=== PATIENT | male | born 1955 | race Caucasian/White ===

== ENCOUNTER 2021-12-18 18:24 | Emergency (ER) | payer MEDICARE, SELFPAY ==
--- NOTE | ~2021-12-18 | CT_ITS ---
EXAMINATION: CT facial & cervical spine wo DATE: 12/18/2021 19:45 INDICATION: facial trauma, Laceration under Left eye TECHNIQUE: Computed tomography (CT) of the maxillofacial region and cervical spine was performed with out intravenous contrast. Automated exposure control and iterative reconstruction technique were empl oyed. The dose-length product was 340.19 mGy-cm. COMPARISON: None FINDINGS: CERVICAL: Vertebral Body Alignment: Intact. Craniocervical and atlantoaxial alignment: Mild degenerative change. Alignment intact. Osseous structures/fracture: No evidence of a lytic or blastic process in the visualized spine. No e vidence of acute fracture. Cervical soft tissues: The paraspinal soft tissues planes are maintained. Degenerative changes: Degenerative disc and facet changes changes, without severe neural foraminal or central canal narrowing. FACE: Mild motion artifact. Soft Tissues: Left frontal and periorbital soft tissue swelling. Facial bones: Irregularity and mild displacement of the nasal bones. No lytic or blastic process. Eyes: The globes are intact. The soft tissue planes of the orbits are maintained. Paranasal Sinuses: Retention cyst or polyp in the left maxillary sinus, with a small amount of aerat ed secretion. Foreign Bodies: No radiopaque foreign bodies. Other Findings: None. IMPRESSION: Motion limited examination of the face. Mild irregularity/displacement of the nasal bones, may reflec t acute or chronic injury, correlate with pain/tenderness. Otherwise no acute facial bone fracture. N o acute fracture or traumatic malalignment in the cervical spine. Reviewed, dictated and finalized at location K. IMPRESSION: Motion limited examination of the face. Mild irregularity/displacement of the n sampson bones, may reflect acute or chronic injury, correlate with pain/tenderness . Otherwise no acute facial bone fracture. No acute fracture or traumatic malal ignment in the cervical spine.
--- NOTE | ~2021-12-18 | XR_ITS ---
EXAMINATION: XR chest 1V portable Exam Date/Time: 12/18/2021 19:35 CDT HISTORY: fall Comparison: None available. RESULT: Lines, tubes, and devices: None. Lungs and pleura: Clear. Cardiomediastinal silhouette: Unremarkable. Other: No acute osseous or upper abdominal finding. IMPRESSION: No acute cardiopulmonary process. Reviewed, dictated and finalized at location K.
--- NOTE | ~2021-12-18 | XR_ITS ---
EXAM: XR pelvis 1-2V DATE: 12/18/2021 19:46 HISTORY: fall . COMPARISON: None available. FINDINGS: Normal mineralization. No fracture or dislocation. No lytic or blastic lesion. Degenerativ e change in the lower lumbar spine and bilateral hips. No erosion or periosteal change. Multiple pelv ic phleboliths. Vascular calcifications. IMPRESSION: No acute osseous finding in the pelvis. Reviewed, dictated and finalized at location K.
--- NOTE | ~2021-12-18 | CT_ITS ---
EXAMINATION: CT brain wo con DATE: 12/18/2021 19:43 INDICATION: head injury . TECHNIQUE: Computed tomography (CT) of the head was performed without intravenous contrast. The mA wa s adjusted according to patient size. Iterative reconstruction technique was employed. The dose-lengt h product was 681.00 mGy-cm. COMPARISON: None FINDINGS: No acute intracranial hemorrhage or extra-axial fluid collection. No hydrocephalus, mass, or herniation. No acute ischemic infarct. Unremarkable dural venous sinus attenuation. No acute osseous abnormality. Left frontal scalp swelling/contusion The aerated spaces are clear. Moderate atrophy and chronic white matter change. Atherosclerotic intracranial calcification. Old kam ateral basal ganglia lacunar infarcts. IMPRESSION: No acute intracranial process. Reviewed, dictated and finalized at location K.
[2021-12-18 18:25] VITALS: BP 175/105; PULSE 86; RESP 16; TEMP 36.4; O2SAT 97
--- NOTE | 2021-12-18 18:28 | ECG_ITS ---
Measurements Intervals [place] Rate: 84 P: 57 ND: 139 QRS: -44 QRSD: 85 T: 34 QT: 367 QTc: 435 Interpretive Statements SINUS RHYTHM LEFT AXIS DEVIATION [QRS AXIS < -30] POSSIBLE RIGHT VENTRICULAR CONDUCTION DELAY [RSR (QR) IN V1/V2] NO PREVIOUS ECG AVAILABLE FOR COMPARISON Electronically Signed On 12-18-2021 19:41:04 CDT by Savi Crabtree M.D.
[2021-12-18 18:40] LABS: Basophils Absolute Auto 0.04 K/mm3 (0.00-0.10); Basophils Percent Auto 0.5 % (0.0-1.0); Eosinophils Absolute Auto 0.13 K/mm3 (0.02-0.50); Eosinophils Percent Auto 1.8 % (1.0-6.0); Hematocrit 43.5 % (37.0-46.0); Immature Granulocyte Absolute 0.02 K/mm3 (0.00-0.00); Immature Granulocyte Percent A 0.3 % (0.0-0.0); Lymphocytes Absolute Auto 3.63 K/mm3 (1.10-4.50); Mean Corpuscular HGB Conc 34.5 g/dL (32.0-36.0); Mean Corpuscular Hemoglobin 35.1 pg (27.0-31.0); Mean Corpuscular Volume 101.9 fL (78.0-102.0); Monocytes Absolute Auto 0.78 K/mm3 (0.10-0.90); Monocytes Percent Auto 10.5 % (2.0-11.0); Neutrophils Absolute Auto 2.8 K/mm3 (1.7-7.2); Neutrophils Percent Auto 37.9 % (50.0-70.0); Platelet Count Result 171 K/mm3 (150-420); Red Blood Count 4.27 M/mm3 (4.70-6.10); Red Cell Distribution Width 12.8 % (11.6-14.4); White Blood Count 7.4 K/mm3 (4.8-10.8)
[2021-12-18 18:54] LABS: Partial Thromboplastin Time 26.6 SEC (23.90-30.70)
[2021-12-18 18:57] LABS: Alanine Aminotransferase 27 U/L (16-63); Albumin Level 3.6 g/dL (3.4-5.0); Alkaline Phosphatase 71 U/L (46-116); Anion Gap 7 mmol/L (8-16); Aspartate Amino Transferase 27 U/L (15-37); Bilirubin,Total 0.4 mg/dL (0.00-1.00); Blood Urea Nitrogen 5 mg/dL (7-18); Calcium 8.6 mg/dL (8.5-10.1); Carbon Dioxide 29 mmol/L (21-32); Chloride 101 mmol/L (98-108); Estimated CRCL calculation 75 ml/min; Estimated Glomerular Filt Rate > 60; Ethanol 170 mg/dL (0-6); Glucose 89 mg/dL (70-99); Osmolality Calculated 280 mOsm/kg (285-295); Potassium 3.6 mmol/L (3.5-5.1); Sodium 137 mmol/L (136-145); Total Protein 7.2 g/dL (6.4-8.2); Troponin I 7.5 ng/L (0.00-60.4)
[2021-12-18] MEDS: TETANUS,DIPHTHERIA,AC PERTUSSIS ADULT 0.5 ML (ADACEL) IM (18:57)
--- NOTE | 2021-12-18 18:59 | PC.NURSE ---
PT WILL NOT LIE ON STRETCHER AND WILL NOT KEEP ICE ON FACE. PT IS SITTING AT THE END OF THE STRETCHER, STATES I AM TRYING TO GET COMFORTABLE. NEPHEW HAS LEFT, DO NOT HAVE CONTACT INFORMATION FOR HIM. PT IN CT AT THIS TIME. WILL CONTINUE TO MONITOR.
[2021-12-18 19:00] VITALS: BP 169/92; PULSE 80; RESP 16; O2SAT 97
--- NOTE | 2021-12-18 19:43 | PC.NURSE ---
Pt incontinent of urine while in CT.
--- NOTE | 2021-12-18 19:52 | ED.FALL ---
HPI - Fall General Chief Complaint: Fall Stated Complaint: fall Time Seen by Provider: 12/18/21 18:26 Source: patient and family History of Present Illness HPI Narrative: 66-year-old male, alcoholic had a witnessed fall. he was walking on the street when he tripped and fell on the sidewalk. He presents to the ER with -- laceration on his nose bridge -- traumatic ulcer measuring 1.5 cm lateral to the left eye and involving the left cheek. profuse bleeding noted -- multiple abrasions on the forehead the cheek and the chin -- Right nostril epistaxis with laceration of the nasal septum complaint: fall Onset (ago): hour(s) ( fell 30 minutes prior to coming to the ER) Fall from: standing Fall witnessed: yes, by family Place fall occurred: street Loss of consciousness: none Prolonged down time: no Symptoms prior to fall: other ( profuse facial bleeding from facial lacerations/ulceration) Context: tripped/slipped and alcohol use Location of injury: head Related Data Home Medications Medication Instructions Recorded Confirmed No Home Medications 12/18/21 12/18/21 Allergies Allergy/AdvReac Type Severity Reaction Status Date / Time No Known Allergies Allergy Verified 12/18/21 18:26 Review of Systems Review of Systems: All systems reviewed & are unremarkable except as noted in HPI and below Constitutional: Constitutional: Reports as per HPI and Reports no additional constitutional complaints Eyes: Eyes: Reports as per HPI and Reports no additional eye complaints ENT: Reports system reviewed and no additional complaints, except as documented and Reports epistaxis Comments: epistaxis from right nostril Cardiovascular: Cardiovascular: Reports as per HPI and Reports no additional cardiovascular complaints Respiratory: Respiratory: Reports as per HPI and Reports no additional respiratory complaints Gastrointestinal: Gastrointestinal: Reports as per HPI and Reports no additional gastrointestinal complaints Genitourinary: Genitourinary: Reports urinary incontinence Musculoskeletal: Musculoskeletal: Reports no additional musculoskeletal complaints Integumentary/Breasts: Comments: facial lacerations/ ulcerations with multiple facial abrasions Neurologic: Reports system reviewed and no additional complaints, except as documented Comments: patient is intoxicated. no focal noted Psychiatric: Psychiatric: Reports no additional psychiatric complaints Endocrine: Endocrine: Reports no additional endocrine complaints Hematologic/Lymphatic: Hematologic/Lymphatic: Reports no additional hematologic/lymphatic complaints and Reports as per HPI Allergic/Immunologic: Allergic/Immunologic: Reports no additional allergic/immunologic complaints and Reports as per HPI [facility] Past Medical History Medical History (Updated 12/18/21 @ 20:58 by Owen Sharma MD) Alcoholic Exam Const: General: ill appearing Nutritional Appearance: thin Orientation/consciousness: patient oriented x3 HENMT: Head images: 1. 1.5 cm traumatic ulcer 2. 1 cm laceration on the nose bridge 3. 4. epistaxis right nostril with the laceration of the nasal septum Face/Nose/Sinus: Normal external nose present ( dried blood in right nostril. Superficial laceration right nasal septum) Eyes: Conjunctivae: conjunctivae normal and conjunctival abnormality Pupils: Equal, round and reactive pupils present EOM: EOMs intact bilaterally Direct Ophthalmoscopy: no photophobia Neck: Neck: normal visual inspection, no lymphadenopathy and no meningeal signs Chest: Chest palpation & inspection: normal inspection of the chest Resp: Effort & Inspection: normal respiratory effort Auscultation: diminished lung sounds Cardio: Rate: regular rate Rhythm: regular rhythm GI: GI Palp: Yes Soft to palpation Auscultation: normal bowel sounds Other: no tenderness/ rigidity/rebound : General: Yes no CVA tenderness Back/Spine/Pelvis: B
[2021-12-18 19:54] VITALS: BP 154/86; PULSE 93; RESP 18; O2SAT 97
--- NOTE | 2021-12-18 19:55 | PC.NURSE ---
Pt informed that ERP will return to place sutures after CT results are back. Pt states that he does not want any sutures placed because I've had sutures there before . Pt informed that ERP will come back to update him about CT results and they can discuss suture placement at that time. ERP aware.
[2021-12-18] MEDS: LIDOCAINE HCL 1% LOCAL INJ 10 ML VIAL (20:10)
--- NOTE | 2021-12-18 20:22 | PC.NURSE ---
Pt agreeable to suture placement at this time. ERP at bedside.
--- NOTE | 2021-12-18 20:36 | PC.NURSE ---
Pt out of bed, getting dressed. Pt's pants wet with urine. Pt provided clean scrub pants and RN assisted pt with getting his shirt and hoodie back on. Pt frequently getting out of bed because he is uncomfortable, so RN offered pt a chair to sit in while he waits for discharge. Pt's neighbor, Sindi Kilgore, contacted to pick pt up.
== END 2021-12-18 21:18 | disposition home or self-care (01) ==
PROVIDERS: Emergency Provider Internal Medicine Critical Care Medicine
DX: S01.81XA Laceration without foreign body of other part of head, initial encounter (principal); S09.90XA Unspecified injury of head, initial encounter; F10.129 Alcohol abuse with intoxication, unspecified; W19.XXXA Unspecified fall, initial encounter
CPT/HCPCS: 12011; 36415; 70450; 70486; 71045; 72125; 72170; 80053; 80307; 84484; 85025; 85610; 85730; 90471; 90715; 93005; 99284